=== PATIENT | male | born 1965 | race Caucasian/White ===

== ENCOUNTER 2016-11-11 10:48 | Emergency (ER) | payer BC ==
--- NOTE | 2016-11-11 11:30 | EDM.PDOC ---
ED HPI GENERAL MEDICAL PROBLEM - General Chief Complaint: General Stated Complaint: ARMS ARE NUMB AND PAIN IN SHOULD AREA Time Seen by Provider: 11/11/16 11:19 Source of Information: Reports: Patient, Family, RN notes reviewed History Limitations: Reports: No limitations - History of Present Illness INITIAL COMMENTS - FREE TEXT/NARRATIVE: 50-year-old gentleman presents emergency Department a complaint of chest and back pain with bilateral arm numbness he has had symptoms on and off for one week they're intermittent symptoms last for one hour and then resolved there is no difference with exertion no difference with food denies any shortness of breath nausea vomiting or diaphoresis he has no significant cardiac history other than an uncle he believes may have had some cardiac issues, NICK score is 0 Upper Back Pain Score (Numeric/FACES): 1 - Related Data Allergies Allergy/AdvReac Type Severity Reaction Status Date / Time No Known Allergies Allergy Verified 11/11/16 11:14 Home Meds: Home Meds NK [No Known Home Meds] 11/30/15 [History] Past Medical History - Past Surgical History GI Surgical History: Reports: Hernia repair/other Social & Family History - Tobacco Use Smoking Status *Q: Never Smoker - Alcohol Use Days Per Week of Alcohol Use: 7 Number of Drinks Per Day: 1 Total Drinks Per Week: 7 - Recreational Drug Use Recreational Drug Use: No ED ROS GENERAL - Review of Systems Review Of Systems: See Below Constitutional: Reports: no symptoms HEENT: Reports: No symptoms Respiratory: Reports: No Symptoms Cardiovascular: Reports: Chest pain GI/Abdominal: Reports: No symptoms : Reports: no symptoms Musculoskeletal: Reports: back pain Skin: Reports: no symptoms Neurological: Reports: Numbness (Both arms) ED EXAM, GENERAL - Physical Exam Exam: See Below Free Text/Narrative:: General: Male, not in any distress, alert and oriented x3 HEENT: head is atraumatic normocephalic, eyes pupils equal round reactive to light, sclera clear no conjunctivitis appreciated. Ears tympanic membranes clear and mayen landmarks and light reflex are present bilaterally canals are clear. Nose no septal deviation, nares are clear, no blood present. Mouth mucosa is moist and pink no erythema or exudate noted in soft palate, tongue is midline uvula is midline, dentition is intact. Neck: Supple no thyromegaly no tracheal deviation. Nodes: Cervical nodes subclavicular nodes nontender no palpable lymphadenopathy noted. Lungs: clear to auscultation bilaterally with symmetrical respirations, no adventitious noise appreciated. CV: Regular rate and rhythm S1 and S2 appreciated no murmurs rubs or gallops noted., chest there is tenderness to palpation midsternal area Abdomen: Soft, nontender, no palpable masses or organomegaly appreciated, no distention no guarding bowel sounds are present,. Neuro: Cranial nerves II through XII grossly intact Skin: Warm and dry, intact Extremities: No lower extremity edema appreciated, Course - Vital Signs Last Recorded V/S: Last Vital Signs Temp 98.0 F 11/11/16 11:14 Pulse 70 11/11/16 13:22 Resp 15 11/11/16 13:22 BP 160/101 H 11/11/16 13:22 Pulse Ox 95 11/11/16 13:22 - Orders/Labs/Meds Orders: Active Orders 24 hr Category Date Time Status Cardiac Monitoring [RC] .As Directed Care 11/11/16 11:24 Active EKG Documentation Completion [RC] ASDIRECTED Care 11/11/16 11:25 Active Chest 2V [CR] Stat Exams 11/11/16 11:25 Taken EKG 12 Lead [EK] Stat Ther 11/11/16 11:25 Ordered Labs: Laboratory Tests 11/11/16 11/11/16 11/11/16 Range/Units 11:40 11:40 11:40 WBC 6.1 (4.5-11.0) K/uL RBC 4.89 (4.30-5.90) M/uL Hgb 15.6 H (12.0-15.0) g/dL Hct 44.8 (40.0-54.0) % MCV 92 (80-98) fL MCH 32 H (27-31) pg MCHC 35 (32-36) % Plt Count 233 (150-400) K/uL Neut % (Auto) 65 (36-66) % Lymph % (Auto) 18 L (24-44) % [place] % (Auto) 13 H (2-6) % Eos % (Auto) 3 (2-4) % Baso % (Auto) 2 H (0-1) % D-Dimer, Quantitative < 100 (0.0-400.0) ng/mL Sodium 142 (140-148) mmol/L Potassium 4.2 (3.6-5.2) mmol/L Chloride 104 (100-108) mmol/L Carbon Dioxide 29 (21-32) mmol/L Anion Gap 9.1 (5.0-14.0) mmol/L BUN 13 (7-18) mg/dL Creatinine 1.0 (0.8-1.3) mg/dL Est Cr Clr Drug Dosing 80.79 mL/min Estimated GFR (MDRD) > 60 (>60) Glucose 100 (74-106) mg/dL Calcium 8.5 (8.5-10.1) mg/dL Total Bilirubin 0.7 (0.2-1.0) mg/dL AST 27 (15-37) U/L ALT 53 (12-78) U/L Alkaline Phosphatase 64 (46-116) U/L Troponin I < 0.017 (0.000-0.056) ng/mL Total Protein 8.3 H (6.4-8.2) g/dL Albumin 3.9 (3.4-5.0) g/dL Globulin 4.4 H (2.3-3.5) g/dL Albumin/Globulin Ratio 0.9 L (1.2-2.2) Lipase 137 (73-393) U/L Departure - Departure Time of Disposition: 13:33 Disposition: Home, Self-Care 01 Condition: good Clinical Impression: Atypical chest pain Forms: ED Department Discharge Additional Instructions: try ibuprofen as needed for symptomatic relief, please followup with your primary care provider in the next 3-5 days for reevaluation - My Orders Last 24 Hours: My Active Orders 11/11/16 11:24 Cardiac Monitoring [RC] .As Directed 11/11/16 11:25 EKG Documentation Completion [RC] ASDIRECTED Chest 2V [CR] Stat EKG 12 Lead [EK] Stat - Assessment/Plan Last 24 Hours: My Active Orders 11/11/16 11:24 Cardiac Monitoring [RC] .As Directed 11/11/16 11:25 EKG Documentation Completion [RC] ASDIRECTED Chest 2V [CR] Stat EKG 12 Lead [EK] Stat Plan: Assessment Acuity = acute Site and laterality = chest pain with bilateral fingertip numbness Etiology = [chest pain probably related to muscle skeletal issue, bilateral fingertip numbness suspicious for carpal tunnel Manifestations = none Location of injury = home Lab values = CBC, CMP, troponin, EKG, chest x-ray all within normal limits Plan I did review lab and x-ray results with him recommend followup with primary care 2 issues 1 he does admit to flicking his wrists to relieve the numbness and tingling he does admit to numbness and tingling in his wrist has been going on for some time, for the chest pain he is to try ibuprofen to see if there is any relationship for the possibility of muscle skeletal and follow up with primary care in the next 3-5 days for reevaluation Patient was in agreement with the plan all questions were answered, they were instructed to return to the emergency department or call for worsening symptoms. This note was dictated using [employer] voice recognition software please call with any questions.
[2016-11-11 13:23] VITALS: BP 160/101
--- NOTE | 2016-11-11 13:32 | CR ---
Chest 2V HISTORY: Upper epigastric pain. COMPARISON: None FINDINGS: Cardiac size and pulmonary vessels normal. No focal infiltrates or effusions. No pneumotho rax. Impression: No acute pulmonary disease.
== END 2016-11-11 13:55 | disposition home or self-care (01) ==
LOC: JP.ED 10:48
DX: R07.89 Other chest pain (principal); Z98.890 Other specified postprocedural states
CPT/HCPCS: 36415; 71020; 71020-26; 80053; 83690; 84484; 85025; 85379; 93005; 99285-25

== ENCOUNTER 2022-06-08 12:47 | Emergency (ER) | payer BC, OTHER ==
[2022-06-08] MEDS: Sodium Chloride 0.9% 1,000 ML IV ONE (14:25)
[2022-06-08] MEDS: Sodium Chloride 0.9% 10 ML Syringe FLUSH PRN (14:33)
[2022-06-08 16:09] VITALS: BP 142/78; PULSE 55
== END 2022-06-08 16:30 | disposition home or self-care (01) ==
LOC: JP.ED 12:47
DX: B34.9 Viral infection, unspecified (principal); Z20.822 Contact with and (suspected) exposure to COVID-19
CPT/HCPCS: 36415; 80048; 85025; 87635; 96360; 99283; J3490; J7030; U0002

== ENCOUNTER 2024-11-30 16:09 | Emergency (ER) | payer OTHER ==
[2024-11-30 16:37] LABS: BASOPHILS ABSOLUTE AUTO 0.05 K/uL (0.00-0.10); BASOPHILS PERCENT AUTO 0.7 % (0.1-1.3); EOSINOPHILS ABSOLUTE AUTO 0.13 K/uL (0.00-0.40); EOSINOPHILS PERCENT AUTO 1.7 % (0.0-5.4); HEMATOCRIT 44.9 % (38.4-49.7); HEMOGLOBIN 15.8 g/dL (12.9-16.9); IMMATURE GRAN ABSOLUTE AUTO 0.02 K/uL (0.00-0.23); IMMATURE GRAN PERCENT AUTO 0.3 % (0.0-0.7); LYMPHOCYTES ABSOLUTE AUTO 1.87 K/uL (0.8-3.3); LYMPHOCYTES PERCENT AUTO 25.2 % (11.4-47.7); MEAN CORPUSCULAR HGB CONC 35.2 g/dL (31.6-35.5); MEAN CORPUSCULAR VOLUME 93.7 fL (81.4-99.0); MONOCYTES ABSOLUTE AUTO 0.83 K/uL (0.20-0.90); MONOCYTES PERCENT AUTO 11.2 % (3.3-12.6); NEUTROPHILS ABSOLUTE AUTO 4.53 K/uL (1.0-7.6); NEUTROPHILS PERCENT AUTO 60.9 % (40.0-78.1); PLATELET COUNT,PLT 260 K/uL (130-375); RED BLOOD CELL COUNT 4.79 M/uL (4.14-5.76); WHITE BLOOD CELL COUNT,WBC 7.4 K/uL (3.2-11.0)
[2024-11-30] MEDS ORDERED: Aluminum Hydroxide/Magnesium Hydroxide/Simethicone Susp 30 ML Cup ONE (16:40)
[2024-11-30 17:03] LABS: ALANINE AMINOTRANSFERASE,ALT 55 U/L (12-78); ALKALINE PHOSPHATASE 71 U/L (46-116); ASPARTATE AMNIOTRANSFERASE,AST 33 U/L (15-37); BILIRUBIN TOTAL 0.7 mg/dL (0.2-1.0); BLOOD UREA NITROGEN,BUN 14 mg/dL (7-18); CALCIUM 9.3 mg/dL (8.5-10.1); CARBON DIOXIDE,CO2 27 mmol/L (21-32); CHLORIDE,CL 103 mmol/L (100-108); CREATININE 1.2 mg/dL (0.8-1.3); EST CRCL DRUG DOSING (CG) 59.07 mL/min; ESTIMATED GFR 69 mL/min (>60); GLUCOSE RANDOM 100 mg/dL (74-106); POTASSIUM,K 3.6 mmol/L (3.6-5.2); PROTEIN TOTAL,TP 8.2 g/dL (6.4-8.2); SODIUM,NA 139 mmol/L (140-148)
[2024-11-30 17:06] LABS: ANION GAP 12.6 mmol/L (5.0-14.0)
[2024-11-30] MEDS ORDERED: Alum Hydrox/Mag Hydrox/Simeth 15 ML, Lidocaine 2% 15 ML PO ONE (17:34)
[2024-11-30] MEDS: Lidocaine 2% Viscous Solution 15 ML UD ONE (17:50)
[2024-11-30] MEDS: Aluminum Hydroxide/Magnesium Hydroxide/Simethicone Susp 30 ML Cup PO SCH (17:50)
[2024-11-30] MEDS: Lidocaine 2% Viscous Solution 100 ML Bottle PO ONE (17:51)
[2024-11-30 17:56] VITALS: BP 153/86; PULSE 65
== END 2024-11-30 17:59 | disposition home or self-care (01) ==
LOC: JP.ED 16:09
DX: K21.9 Gastro-esophageal reflux disease without esophagitis (principal); R07.89 Other chest pain
CPT/HCPCS: 36415; 71046; 80053; 84484; 85025; 93005; 99285; A9270-GY